=== PATIENT | female | born 1955 | race Two or more races ===

== ENCOUNTER 2016-05-30 17:22 | Inpatient (IN) | payer MEDICAID ==
[~2016-05-30] VITALS: Ht 157.5 cm; Wt 94.5 kg
[2016-05-30 21:03] LABS: Lactic Acid 2.8 mmol/L (0.4-2.0)
[2016-05-30 21:07] LABS: Albumin 3.1 g/dL (3.4-5.0); Alkaline Phosphatase 89 U/L (45-117); Aspartate Aminotransferase 74 U/L (15-37); BUN/Creatinine Ratio 8.8; Bilirubin, Total 0.2 mg/dL (0.2-1.0); Blood Urea Nitrogen 20 mg/dL (7-18); Carbon Dioxide 25 mmol/L (21-32); GFR African American 28 mL/min; GFR Non-African American 23 mL/min; Glucose 132 mg/dL (74-106); Total Protein 7.1 g/dL (6.4-8.2)
[2016-05-30 21:14] LABS: Urine Bilirubin Negative (Negative); Urine Blood 1+ /uL (Negative); Urine Color Yellow (Yellow); Urine Glucose Normal (Normal); Urine Ketone Negative (Negative); Urine Nitrite POSITIVE (Negative); Urine RBC 12 /hpf (0 - 4); Urine Squamous Epithelial Cell FEW /hpf (<5); Urine Urobilinogen Normal (Negative); Urine WBC Clumps PRESENT /hpf (None Seen); Urine pH 6.5 (5.0-8.0)
[2016-05-30 21:21] LABS: Basophils # (auto) 0 uL; DEFINITIVE VIEW TRANSMISSION; Eosinophils # (auto) 0.1 uL; Eosinophils % (auto) 0.8 % (0.0-7.0); Hematocrit 27.7 % (36.0-46.0); Hemoglobin 8.8 g/dL (12.2-16.2); Lymphocytes # (auto) 0.2 uL; Lymphocytes % (auto) 2.5 % (10.0-50.0); Mean Corpuscular Hemoglobin 25.7 pg (28.0-32.0); Mean Corpuscular Hgb Conc. 31.6 g/dL (32.0-36.0); Mean Corpuscular Volume 81.2 fL (80.0-100.0); Mean Platelet Volume 9.3 fL (7.4-10.4); Monocytes # (auto) 0.2 uL; Monocytes % (auto) 1.9 % (0.0-12.0); Neutrophils # (auto) 8.4 uL; Neutrophils % (auto) 94.8 % (37.0-80.0); Platelet Count (auto) 352 10^3/uL (140-450); SUSPECT VIEW TRANSMISSION; White Blood Cell 8.8 10^3/uL (4.4-10.8)
[2016-05-30 21:23] LABS: Red Cell Distribution Width 26.6 % (11.6-16.0)
[2016-05-30 21:26] LABS: Anion Gap 11 (5-15); Chloride 99 mmol/L (98-107); Potassium 4.2 mmol/L (3.5-5.1); Sodium 135 mmol/L (136-145)
[2016-05-30 21:32] LABS: REFLEX LACTIC ACID YES OR NO YES
[2016-05-30 22:19] LABS: Anisocytosis Moderate; Hypochromia Slight; Platelet Estimate Adequate
[2016-05-30 22:20] LABS: Ovalocytes FEW
[2016-05-30 23:17] LABS: Lactic Acid 2.4 mmol/L (0.4-2.0)
[2016-05-30 23:28] LABS: REFLEX LACTIC ACID YES OR NO NO
[2016-05-31] VITALS (14 sets, daily range): BP systolic 89–145; BP diastolic 46–89
[2016-05-31] MEDS ORDERED: ACETAMINOPHEN 500 MG TAB PO ONE ×2 (01:57→02:15)
[2016-05-31] MEDS ORDERED: VANCOMYCIN 1GM/250ML D5W 250 ML IV ONE ×2 (02:08→02:15)
[2016-05-31] MEDS ORDERED: SODIUM CHLORIDE 0.9% 1,000 ML IV ONE (03:00)
[2016-05-31] MEDS ORDERED: IBUPROFEN 600 MG TAB PO ONE (06:30)
[2016-05-31] MEDS ORDERED: SODIUM CHLORIDE 0.9% 1,000 ML IV SCH ×2 (06:38→11:45)
[2016-05-31] MEDS ORDERED: PIPERACILLIN-TAZOB 2.25GM 50 ML IV ONE (06:45)
[2016-05-31] MEDS ORDERED: PROMETHAZINE HCL 25 MG/ML 1ML IV PRN (06:45)
[2016-05-31] MEDS ORDERED: ALBUTEROL SULF 2.5 MG/0.5ML(0.5%) NEB SOLN NEB PRN (06:45)
[2016-05-31] MEDS ORDERED: MORPHINE SULF INJ 2 MG/ML SYRINGE 1ML IV PRN (06:45)
[2016-05-31] MEDS ORDERED: NITROGLYCERIN 0.4 MG SL TAB SL PRN (06:45)
[2016-05-31] MEDS ORDERED: DEXTROSE (50%) 50ML SYRG IV PRN (06:45)
[2016-05-31] MEDS ORDERED: LACTULOSE 20Gm/30ML SOLN PO PRN (06:45)
[2016-05-31] MEDS: InsuLIN REG 1unit/0.01ml Soln (100units/ml) SC SCH ×4 (07:00→22:00)
[2016-05-31] MEDS ORDERED: OSELTAMIVIR 75 MG CAP PO ONE (07:00)
[2016-05-31] MEDS: ACCU-CHEK COMFORT CURVE STRIP VI SCH ×4 (07:16→22:28)
[2016-05-31] MEDS: PANTOPRAZOLE 40 MG TAB PO SCH (09:48)
[2016-05-31] MEDS: ENOXAPARIN SOD 40 MG/0.4 ML SYRINGE SC SCH (09:48)
[2016-05-31] MEDS: AZITHROMYCIN 500MG/D5W 250ML 250 ML IV SCH (09:48)
[2016-05-31] MEDS: ENALAPRIL MALEATE 2.5 MG TAB PO SCH (10:00)
[2016-05-31] MEDS ORDERED: NOREPINEPHRINE BITARTRATE 250 ML IV SCH (10:45)
[2016-05-31] MEDS ORDERED: SODIUM CHLORIDE 0.9% 500 ML IV ONE (10:45)
[2016-05-31] MEDS: PIPERACILLIN-TAZOB 2.25GM 50 ML IV SCH ×3 (12:00→23:56)
[2016-05-31 12:10] LABS: Hematocrit 24.5 % (36.0-46.0); Hemoglobin 7.7 g/dL (12.2-16.2)
[2016-05-31] MEDS: MORPHINE SULF INJ 2 MG/ML SYRINGE 1ML IV PRN ×2 (13:20→19:05)
[2016-05-31] MEDS: ACETAMINOPHEN 500 MG TAB PO PRN ×2 (14:34→20:35)
[2016-05-31] MEDS ORDERED: PREG75CA PO (15:18)
[2016-05-31] MEDS ORDERED: ALPR1TAB7 PO (15:18)
[2016-05-31] MEDS ORDERED: CLOP75TA28 PO (15:18)
[2016-05-31] MEDS ORDERED: [UNRECOGNIZED DRUG - CODE] PO (15:18)
[2016-05-31] MEDS ORDERED: METF-312 PO (15:18)
[2016-05-31] MEDS ORDERED: FAMO-12 PO (15:18)
[2016-05-31] MEDS ORDERED: VARE1TAB PO (15:18)
[2016-05-31] MEDS ORDERED: DOCU1CAP31 PO (15:18)
[2016-05-31] MEDS ORDERED: ASPI81CH49 PO (15:18)
[2016-05-31] MEDS ORDERED: [UNRECOGNIZED DRUG - CODE] PO (15:18)
[2016-05-31] MEDS ORDERED: DIPH25CA6 PO (15:18)
[2016-05-31] MEDS ORDERED: ESCI10TA PO (15:18)
[2016-05-31] MEDS ORDERED: LEVO75TA6 PO (15:18)
[2016-05-31] MEDS ORDERED: HCTZ25T PO (15:18)
[2016-05-31] MEDS ORDERED: LANS30CA63 PO (15:18)
[2016-05-31] MEDS ORDERED: PRO10T PO (15:18)
[2016-05-31] MEDS: ALBUTEROL SULF 2.5 MG/0.5ML(0.5%) NEB SOLN NEB SCH ×2 (15:20→18:00)
[2016-05-31] MEDS: IPRATROPIUM BROM 0.5 MG/2.5ML INH SOL NEB SCH ×2 (15:21→18:00)
[2016-05-31 18:42] LABS: Hematocrit 27.6 % (36.0-46.0); Hemoglobin 8.7 g/dL (12.2-16.2)
[2016-05-31] MEDS: SODIUM CHLORIDE 0.9% 1,000 ML IV SCH (20:00)
[2016-05-31] MEDS: TEMAZEPAM 15 MG CAP PO PRN (21:57)
[2016-05-31] MEDS ORDERED: OSELTAMIVIR 30 MG CAP PO SCH (22:00)
[2016-06-01] MEDS: MORPHINE SULF INJ 2 MG/ML SYRINGE 1ML IV PRN ×5 (01:25→22:59)
[2016-06-01 05:27] VITALS: BP 139/75
[2016-06-01] MEDS: PIPERACILLIN-TAZOB 2.25GM 50 ML IV SCH ×4 (05:42→22:58)
[2016-06-01] MEDS: LORazepam 0.5 MG TAB PO PRN (05:47)
[2016-06-01] MEDS: InsuLIN REG 1unit/0.01ml Soln (100units/ml) SC SCH ×4 (05:48→21:19)
[2016-06-01] MEDS: ACCU-CHEK COMFORT CURVE STRIP VI SCH ×4 (05:49→21:19)
[2016-06-01 06:11] LABS: Basophils # (auto) 0 uL; Basophils % (auto) 0.1 % (0.0-2.0); DEFINITIVE VIEW TRANSMISSION; Eosinophils # (auto) 0 uL; Eosinophils % (auto) 0.4 % (0.0-7.0); Hematocrit 29.6 % (36.0-46.0); Hemoglobin 9.3 g/dL (12.2-16.2); Lymphocytes # (auto) 0.3 uL; Lymphocytes % (auto) 3.8 % (10.0-50.0); Mean Corpuscular Hemoglobin 26.6 pg (28.0-32.0); Mean Corpuscular Hgb Conc. 31.6 g/dL (32.0-36.0); Mean Corpuscular Volume 84.2 fL (80.0-100.0); Mean Platelet Volume 9.6 fL (7.4-10.4); Monocytes # (auto) 0.1 uL; Monocytes % (auto) 1.3 % (0.0-12.0); Neutrophils # (auto) 7.9 uL; Neutrophils % (auto) 94.4 % (37.0-80.0); Platelet Count (auto) 333 10^3/uL (140-450); SUSPECT VIEW TRANSMISSION; White Blood Cell 8.4 10^3/uL (4.4-10.8)
[2016-06-01 06:26] LABS: INR 1.15 (0.9-1.15); Prothrombin Time 11.8 sec (9.37-12.3)
[2016-06-01 06:32] LABS: Potassium 3.1 mmol/L (3.5-5.1)
[2016-06-01 06:40] LABS: Albumin 2.4 g/dL (3.4-5.0); BUN/Creatinine Ratio 11.2; Calcium 7.6 mg/dL (8.5-10.1); Magnesium 1.9 mg/dL (1.6-2.6)
[2016-06-01 06:43] LABS: Bilirubin, Total 0.3 mg/dL (0.2-1.0); Total Protein 6.2 g/dL (6.4-8.2)
[2016-06-01 06:53] LABS: Red Cell Distribution Width 24.2 % (11.6-16.0)
[2016-06-01 07:09] LABS: B-Type Natriuretic Peptide 473.82 pg/mL (0-100); Cholesterol 97 mg/dL (<200); HDL Cholesterol 43 mg/dL (40-59); LDL Cholesterol 45 mg/dL (<100); Temperature: 22.2 C (20.0-25.0); Triglycerides 123 mg/dL (<150)
[2016-06-01 07:34] LABS: Anisocytosis Moderate; Hypochromia Slight
[2016-06-01 07:35] LABS: Ovalocytes MODERATE; Platelet Estimate Adequate
[2016-06-01 07:36] LABS: Giant Platelets Few
[2016-06-01] MEDS: ALBUTEROL SULF 2.5 MG/0.5ML(0.5%) NEB SOLN NEB SCH ×4 (07:54→20:05)
[2016-06-01] MEDS: IPRATROPIUM BROM 0.5 MG/2.5ML INH SOL NEB SCH ×4 (07:54→20:05)
[2016-06-01 08:41] VITALS: BP 119/63
[2016-06-01] MEDS: AZITHROMYCIN 500MG/D5W 250ML 250 ML IV SCH (09:07)
[2016-06-01] MEDS: PANTOPRAZOLE 40 MG TAB PO SCH (09:07)
[2016-06-01] MEDS: ENALAPRIL MALEATE 2.5 MG TAB PO SCH (09:08)
[2016-06-01] MEDS: ENOXAPARIN SOD 40 MG/0.4 ML SYRINGE SC SCH (12:01)
[2016-06-01 12:31] VITALS: BP 102/53
[2016-06-01] MEDS ORDERED: POTASSIUM CHL 20 Meq TABLET PO ONE (13:15)
[2016-06-01] MEDS: HYDROcodone-ACET 5/325MG TAB PO PRN (16:55)
[2016-06-01 17:41] VITALS: BP 103/70
[2016-06-01 20:00] VITALS: BP 122/58
[2016-06-01] MEDS: TEMAZEPAM 15 MG CAP PO PRN (20:45)
[2016-06-01 22:00] VITALS: BP 122/58
[2016-06-02] VITALS (7 sets, daily range): BP systolic 136–153; BP diastolic 65–95
[2016-06-02] MEDS: MORPHINE SULF INJ 2 MG/ML SYRINGE 1ML IV PRN ×5 (03:01→21:39)
[2016-06-02] MEDS: PIPERACILLIN-TAZOB 2.25GM 50 ML IV SCH ×3 (05:02→17:17)
[2016-06-02] MEDS: InsuLIN REG 1unit/0.01ml Soln (100units/ml) SC SCH ×4 (06:01→21:39)
[2016-06-02] MEDS: ACCU-CHEK COMFORT CURVE STRIP VI SCH ×4 (06:01→21:39)
[2016-06-02 06:25] LABS: Basophils # (auto) 0 uL; DEFINITIVE VIEW TRANSMISSION; Eosinophils # (auto) 0.1 uL; Eosinophils % (auto) 2.5 % (0.0-7.0); Hematocrit 26.8 % (36.0-46.0); Hemoglobin 8.7 g/dL (12.2-16.2); Lymphocytes # (auto) 0.4 uL; Lymphocytes % (auto) 10.1 % (10.0-50.0); Mean Corpuscular Hemoglobin 27.3 pg (28.0-32.0); Mean Corpuscular Hgb Conc. 32.4 g/dL (32.0-36.0); Mean Corpuscular Volume 84.2 fL (80.0-100.0); Mean Platelet Volume 9.7 fL (7.4-10.4); Monocytes # (auto) 0.2 uL; Monocytes % (auto) 5.1 % (0.0-12.0); Neutrophils # (auto) 2.9 uL; Neutrophils % (auto) 81.3 % (37.0-80.0); Platelet Count (auto) 311 10^3/uL (140-450); SUSPECT VIEW TRANSMISSION; White Blood Cell 3.6 10^3/uL (4.4-10.8)
[2016-06-02 06:33] LABS: INR 1.06 (0.9-1.15); Prothrombin Time 10.9 sec (9.37-12.3)
[2016-06-02 06:35] LABS: BUN/Creatinine Ratio 11.8; Calcium 7.6 mg/dL (8.5-10.1); Magnesium 1.7 mg/dL (1.6-2.6); Potassium 3.2 mmol/L (3.5-5.1)
[2016-06-02] MEDS: IPRATROPIUM BROM 0.5 MG/2.5ML INH SOL NEB SCH ×5 (07:03→20:06)
[2016-06-02] MEDS: ALBUTEROL SULF 2.5 MG/0.5ML(0.5%) NEB SOLN NEB SCH ×4 (07:03→20:06)
[2016-06-02 07:28] LABS: Red Cell Distribution Width 23.9 % (11.6-16.0)
[2016-06-02 09:23] LABS: Anisocytosis Moderate
[2016-06-02 09:27] LABS: Ovalocytes MODERATE; Platelet Estimate Adequate; Tear Drop Cells FEW
[2016-06-02] MEDS: SODIUM CHLORIDE 0.9% 1,000 ML IV SCH (09:28)
[2016-06-02] MEDS: AZITHROMYCIN 500MG/D5W 250ML 250 ML IV SCH (09:30)
[2016-06-02] MEDS: ENALAPRIL MALEATE 2.5 MG TAB PO SCH (09:31)
[2016-06-02] MEDS: ENOXAPARIN SOD 40 MG/0.4 ML SYRINGE SC SCH (09:31)
[2016-06-02] MEDS: PANTOPRAZOLE 40 MG TAB PO SCH (09:31)
[2016-06-02] MEDS: LORazepam 0.5 MG TAB PO PRN ×2 (09:42→14:18)
[2016-06-02] MEDS: HYDROcodone-ACET 5/325MG TAB PO PRN (11:14)
[2016-06-02] MEDS ORDERED: POTASSIUM CHL 20 Meq TABLET PO ONE (12:30)
[2016-06-02] MEDS: CITALOPRAM HYDROBR 20 MG TAB PO SCH (14:57)
[2016-06-02] MEDS: Boost Glucose Control 8 Ounces PO SCH ×2 (18:00→21:38)
[2016-06-03] MEDS: ALBUTEROL SULF 2.5 MG/0.5ML(0.5%) NEB SOLN NEB SCH ×3 (00:57→11:49)
[2016-06-03] MEDS: IPRATROPIUM BROM 0.5 MG/2.5ML INH SOL NEB SCH ×2 (00:57→06:53)
[2016-06-03] MEDS: SODIUM CHLORIDE 0.9% 1,000 ML IV SCH (02:39)
[2016-06-03] MEDS: HYDROcodone-ACET 5/325MG TAB PO PRN ×2 (04:57→11:50)
[2016-06-03 05:00] VITALS: BP 147/72
[2016-06-03] MEDS: PIPERACILLIN-TAZOB 2.25GM 50 ML IV SCH ×3 (05:46→11:51)
[2016-06-03] MEDS: Boost Glucose Control 8 Ounces PO SCH ×2 (05:46→14:44)
[2016-06-03] MEDS: ACCU-CHEK COMFORT CURVE STRIP VI SCH ×3 (05:47→17:00)
[2016-06-03] MEDS: InsuLIN REG 1unit/0.01ml Soln (100units/ml) SC SCH ×3 (05:47→17:00)
[2016-06-03 06:23] LABS: Albumin 2.4 g/dL (3.4-5.0); BUN/Creatinine Ratio 12.2; Calcium 7.7 mg/dL (8.5-10.1); Potassium 3.6 mmol/L (3.5-5.1)
[2016-06-03 06:29] LABS: Basophils # (auto) 0 uL; Basophils % (auto) 1.2 % (0.0-2.0); DEFINITIVE VIEW TRANSMISSION; Eosinophils # (auto) 0 uL; Eosinophils % (auto) 1.7 % (0.0-7.0); Hematocrit 26.1 % (36.0-46.0); Hemoglobin 8.3 g/dL (12.2-16.2); Lymphocytes # (auto) 0.3 uL; Lymphocytes % (auto) 14.1 % (10.0-50.0); Mean Corpuscular Hemoglobin 26.8 pg (28.0-32.0); Mean Corpuscular Hgb Conc. 31.8 g/dL (32.0-36.0); Mean Corpuscular Volume 84.3 fL (80.0-100.0); Mean Platelet Volume 9.8 fL (7.4-10.4); Monocytes # (auto) 0.3 uL; Neutrophils # (auto) 1.7 uL; Platelet Count (auto) 297 10^3/uL (140-450); SUSPECT VIEW TRANSMISSION; White Blood Cell 2.4 10^3/uL (4.4-10.8)
[2016-06-03 06:59] LABS: Red Cell Distribution Width 24.2 % (11.6-16.0)
[2016-06-03 07:07] LABS: Bilirubin, Total 0.2 mg/dL (0.2-1.0)
[2016-06-03 07:34] VITALS: BP 129/81
[2016-06-03 08:30] VITALS: BP 154/76
[2016-06-03 08:48] LABS: Anisocytosis Moderate; Giant Platelets Few; Hypochromia Slight; Ovalocytes MODERATE; Platelet Estimate Adequate
[2016-06-03] MEDS: ENOXAPARIN SOD 40 MG/0.4 ML SYRINGE SC SCH (09:22)
[2016-06-03] MEDS: AZITHROMYCIN 500MG/D5W 250ML 250 ML IV SCH (09:22)
[2016-06-03] MEDS: CITALOPRAM HYDROBR 20 MG TAB PO SCH (09:23)
[2016-06-03] MEDS: PANTOPRAZOLE 40 MG TAB PO SCH (09:23)
[2016-06-03] MEDS: ENALAPRIL MALEATE 2.5 MG TAB PO SCH (09:23)
[2016-06-03] MEDS: MORPHINE SULF INJ 2 MG/ML SYRINGE 1ML IV PRN (09:24)
[2016-06-03 12:30] VITALS: BP 147/75
[2016-06-03 15:54] VITALS: BP 131/75
[2016-06-03 16:28] VITALS: BP 114/64
== END 2016-06-03 17:10 | disposition home or self-care (01) | DRG 720 ==
LOC: EDUNIT# 17:22 → ER 17:26 → TELE 17:27 → TELE-E-ADS 05-31 08:48 → TELE-WESTW 05-31 09:14
PROVIDERS: ADMIT Internal Medicine; ATTEND Internal Medicine
PROC: 30233N1 Transfusion of Nonautologous Red Blood Cells into Peripheral Vein, Percutaneous Approach (ICD-10-PCS; principal; 2016-05-31)
DX: A41.9 Sepsis, unspecified organism (principal); N17.0 Acute kidney failure with tubular necrosis; E43 Unspecified severe protein-calorie malnutrition; E11.22 Type 2 diabetes mellitus with diabetic chronic kidney disease; C67.9 Malignant neoplasm of bladder, unspecified; I50.40 Unspecified combined systolic (congestive) and diastolic (congestive) heart failure; I13.0 Hypertensive heart and chronic kidney disease with heart failure and stage 1 through stage 4 chronic kidney disease, or unspecified chronic kidney disease; E86.0 Dehydration; E87.6 Hypokalemia; D63.8 Anemia in other chronic diseases classified elsewhere; Z68.38 Body mass index [BMI] 38.0-38.9, adult; J44.9 Chronic obstructive pulmonary disease, unspecified; N18.3 Chronic kidney disease, stage 3 (moderate); N39.0 Urinary tract infection, site not specified; Z85.51 Personal history of malignant neoplasm of bladder; Z91.041 Radiographic dye allergy status; N28.0 Ischemia and infarction of kidney; N13.9 Obstructive and reflux uropathy, unspecified; E88.09 Other disorders of plasma-protein metabolism, not elsewhere classified
CPT/HCPCS: 36415; 36430; 71010; 76700; 80048; 80053; 80061; 81001; 82550; 82962; 83036; 83605; 83735; 83880; 84443; 84484; 85014; 85018; 85025; 85045; 85610; 85652; 86850; 86900; 86901; 86920; 87040; 87077; 87086; 87088; 87186; 87400; 93005; 93306; 94640; 96365; 96367; G9035; J1815; J2543; J3490